=== PATIENT | female | born 1940 | race Caucasian/White ===

== ENCOUNTER 2017-01-25 14:08 | Emergency (ER) | payer MEDICARE, BC ==
[2017-01-25] MEDS ORDERED: Albuterol/Ipratropium 3.0-0.5 MG/3 ML Neb Soln NEB ONE (14:58)
--- NOTE | 2017-01-25 15:09 | EDM.PDOC ---
ED HPI GENERAL MEDICAL PROBLEM - General Chief Complaint: Upper Extremity Injury/Pain Stated Complaint: FELL AND HIT HEAD Time Seen by Provider: 01/25/17 14:32 Source of Information: Reports: Patient History Limitations: Reports: No Limitations - History of Present Illness INITIAL COMMENTS - FREE TEXT/NARRATIVE: 76 yo female presents to ER after fall. She was bending to sweep floor in bathroom and is unsure how but fell hitting head on floor, she recalls whole fall with no LOC. She has abrasion to left forehead bleeding currently controlled. denies headache or nausea. She states she felt great before the fall and does not believe she passed out. she injured left wrist and right 4th digit in the fall. no other injuries. She also c/o multiple weeks of intermittent wheezing. clear nasal drainage. she has became wheezy before and had relief with nebs. she is visiting from [place] and plans to return home in 2 days. Denies fever, chills, or general illness. - Related Data Allergies Allergy/AdvReac Type Severity Reaction Status Date / Time Penicillins Allergy Hives Verified 01/25/17 14:23 Home Meds: Home Meds Metoprolol Succinate [Toprol XL] 01/25/17 [History] PARoxetine HCl [Paxil] 01/25/17 [History] Rosuvastatin [Crestor] 01/25/17 [History] Past Medical History Musculoskeletal History: Reports: Back Pain, Chronic - Past Surgical History Female Surgical History: Reports: Section Musculoskeletal Surgical History: Reports: Carpal Tunnel Social & Family History - Tobacco Use Smoking Status *Q: Never Smoker Review of Systems - Review of Systems Review Of Systems: See Below Respiratory: Reports: Wheezing Cardiovascular: Denies: Chest Pain, Edema GI/Abdominal: Denies: Abdominal Pain Genitourinary: Denies: Dysuria Musculoskeletal: Reports: Arm Pain, Hand Pain ED EXAM, GENERAL - Physical Exam Exam: See Below Exam Limited By: No Limitations General Appearance: Alert, WD/WN, No Apparent Distress Head: Facial Swelling (mild edema to left forehead), Facial Tenderness (left facial abrasion) Neck: Normal Inspection, Supple, Non-Tender, Full Range of Motion. No: Lymphadenopathy (R), Lymphadenopathy (L) Respiratory/Chest: No Accessory Muscle Use, Chest Non-Tender, Wheezing ( throughout) Cardiovascular: Regular Rate, Rhythm, No JVD, No Murmur, No Rub GI/Abdominal: Soft, Non-Tender Back Exam: Normal Inspection, Full Range of Motion Extremities: Joint Swelling (left wrist point tenderness and moderate edema medial distal ulna, right 4th finger PIP ecchymosis with moderate edema) Neurological: Alert, Oriented, Normal Cognition, Normal Gait, Normal Reflexes, No Motor/Sensory Deficits Psychiatric: Normal Affect, Normal Mood Skin Exam: Warm, Dry, Intact Lymphatic: No Adenopathy Course - Vital Signs Last Recorded V/S: Last Vital Signs Temp 36 C 01/25/17 14:33 Pulse 76 01/25/17 14:33 Resp 14 01/25/17 14:33 BP 193/103 H 01/25/17 14:33 Pulse Ox 97 01/25/17 14:33 - Orders/Labs/Meds Orders: Active Orders 24 hr Category Date Time Status RT Aerosol Therapy [RC] ASDIRECTED Care 01/25/17 14:58 Active Chest 2V [CR] Stat Exams 01/25/17 14:58 Taken Fingers Fourth Digit Rt F8 [CR] Stat Exams 01/25/17 14:56 Taken Wrist Comp Min 3V Lt [CR] Stat Exams 01/25/17 14:57 Taken Meds: Medications Discontinued Medications Generic Name Dose Route Start Last Admin Trade Name Freq PRN Reason Stop Dose Admin Albuterol/Ipratropium 3 ml 01/25/17 14:58 01/25/17 15:33 Duoneb 3.0-0.5 Mg/3 Ml NEB 01/25/17 14:59 3 ml ONETIME ONE Administration Departure - Departure Time of Disposition: 15:42 Disposition: Home, Self-Care 01 Condition: Good Clinical Impression: Fracture of ulna Qualifiers: Encounter type: initial encounter Ulna location: distal Fracture type: closed Fracture morphology: unspecified fracture morphology Laterality: left Qualified Code(s): S52.602A - Unspecified fracture of lower end of left ulna, initial encounter for closed fracture Pneumonia Qualifiers: Pneumonia type: due to unspecified organism Laterality: right Lung location: lower lobe of lung Qualified Code(s): J18.1 - Lobar pneumonia, unspecified organism - Discharge Information Referrals: PCP,None [Primary Care Provider] - Forms: ED Department Discharge Additional Instructions: ice finger and wrist at least 3 times per day tylenol 1000 mg every 6 hours for pain leave splint in place until she is seen in follow-up either by primary care provider or orthopedics, X-ray are on CD pneumonia and wheezing - Azithromycin 500 mg daily for 5 days. continue use of albuterol MDI until you return home then use nebulizer in place of MDI - My Orders Last 24 Hours: My Active Orders 01/25/17 14:56 Fingers Fourth Digit Rt F8 [CR] Stat 01/25/17 14:57 Wrist Comp Min 3V Lt [CR] Stat 01/25/17 14:58 RT Aerosol Therapy [RC] ASDIRECTED Chest 2V [CR] Stat - Assessment/Plan Last 24 Hours: My Active Orders 01/25/17 14:56 Fingers Fourth Digit Rt F8 [CR] Stat 01/25/17 14:57 Wrist Comp Min 3V Lt [CR] Stat 01/25/17 14:58 RT Aerosol Therapy [RC] ASDIRECTED Chest 2V [CR] Stat
[2017-01-25 16:06] VITALS: BP 190/92
[2017-01-25] MEDS ORDERED: Bacitracin Oint 1 GM U/D Packet ONE (16:11)
--- NOTE | 2017-01-27 08:26 | CR ---
Chest 2V HISTORY: wheeze COMPARISON: None FINDINGS: Lungs appear clear and normally aerated. Cardiomediastinal silhouette is within normal limits. No va scular redistribution or pleural fluid can be seen. Anterior*are noted mid to lower thoracic spine. IMPRESSION: No acute cardiopulmonary disease is identified.
--- NOTE | 2017-01-27 08:27 | CR ---
Fingers Fourth Digit Rt F8 HISTORY: trauma FINDINGS: Bony structures are diffusely osteopenic. There is a mildly displaced small avulsion fract ure anteriorly at the base of the middle phalanx right fourth finger. Associated soft tissue swellin g is noted. Degenerative joint space narrowing is seen at the DIP and PIP joints. IMPRESSION: Mildly displaced volar plate avulsion fracture base of the middle fillings right fourth finger. Osteopenia and osteoarthritis are noted.
--- NOTE | 2017-01-27 08:29 | CR ---
Wrist Comp Min 3V Lt HISTORY: trauma FINDINGS: There appears to be a slightly displaced avulsion fracture tip of the styloid process left ulna. No other acute fracture or dislocation about the left wrist is identified. Mild degenerative changes are noted. There is soft tissue swelling. IMPRESSION: Probable mildly displaced avulsion fracture tip of the study process left ulna. Recommen d clinical correlation for point tenderness. Degenerative changes left wrist are noted.
== END 2017-01-25 16:38 | disposition home or self-care (01) ==
LOC: JP.ED 14:08
DX: S52.602A Unspecified fracture of lower end of left ulna, initial encounter for closed fracture (principal); J18.9 Pneumonia, unspecified organism; Z88.0 Allergy status to penicillin; W18.30XA Fall on same level, unspecified, initial encounter; Y93.89 Activity, other specified
CPT/HCPCS: 71020; 73110; 73140; 99284; J7620; 99283

== ENCOUNTER 2017-02-01 16:31 | Emergency (ER) | payer MEDICARE, BC ==
[2017-02-01 17:08] VITALS: BP 176/83
[2017-02-01] MEDS ORDERED: Albuterol/Ipratropium 3.0-0.5 MG/3 ML Neb Soln NEB ONE ×2 (17:49→19:03)
--- NOTE | 2017-02-01 17:55 | EDM.PDOC ---
ED HPI GENERAL MEDICAL PROBLEM - General Chief Complaint: Respiratory Problem Stated Complaint: PNEUMONIA Time Seen by Provider: 02/01/17 17:45 Source of Information: Reports: Patient History Limitations: Reports: No Limitations - History of Present Illness INITIAL COMMENTS - FREE TEXT/NARRATIVE: Beth is a 76 year old female who presents to the ED today with c/o increased wheezing and sob. Patient was seen in the ED on 01/25 after she fell and diagnosed with a distal ulnar fracture. Patient was reportedly wheezing at that time and a CXR was done. Patient was put on a Zpack for pneumonia and has been using albuterol inhalers and nebulizers at home. Patient denies worsening of symptoms but reports her symptoms really haven't improved. She denies any fever/chills. Patient denies any chest pain. Patient has been eating and drinking well. - Related Data Allergies Allergy/AdvReac Type Severity Reaction Status Date / Time Penicillins Allergy Hives Verified 01/25/17 14:23 Home Meds: Home Meds Metoprolol Succinate [Toprol XL] 100 mg PO DAILY 01/25/17 [History] PARoxetine HCl [Paxil] 10 mg PO DAILY 01/25/17 [History] Rosuvastatin [Crestor] 10 mg PO BEDTIME 01/25/17 [History] Albuterol [Proventil Neb Soln] 2.5 mg IH Q4HR 02/01/17 [History] Albuterol [Ventolin HFA] 2 puff IH Q4HR PRN 02/01/17 [History] Fluticasone/Vilanterol [Breo Ellipta 100-25 MCG Inhalation Kit] 1 each IH DAILY 02/01/17 [History] Latanoprost [Latanoprost] 1 drop TOP BEDTIME 02/01/17 [History] Losartan/Hydrochlorothiazide [Losartan-HCTZ 100-12.5 MG] 1 tab PO DAILY [History] Past Medical History HEENT History: Reports: Cataract, Glaucoma Cardiovascular History: Reports: High Cholesterol, Hypertension Genitourinary History: Reports: Urinary Incontinence [employer] History: Reports: Musculoskeletal History: Reports: Back Pain, Chronic Psychiatric History: Reports: Anxiety Hematologic History: Reports: Other (See Below) Other Hematologic History: Factor five - Past Surgical History HEENT Surgical History: Reports: Cataract Surgery Female Surgical History: Reports: Section Neurological Surgical History: Reports: Spinal Fusion Musculoskeletal Surgical History: Reports: Carpal Tunnel Social & Family History - Tobacco Use Smoking Status *Q: Former Smoker Used Tobacco, but Quit: Yes Month Tobacco Last Used: 43 years ago - Caffeine Use Caffeine Use: Reports: Coffee - Recreational Drug Use Recreational Drug Use: No ED ROS GENERAL - Review of Systems Review Of Systems: See Below Constitutional: Reports: No Symptoms HEENT: Reports: No Symptoms Respiratory: Reports: Shortness of Breath, Wheezing Cardiovascular: Reports: No Symptoms Endocrine: Reports: No Symptoms GI/Abdominal: Reports: No Symptoms : Reports: No Symptoms Musculoskeletal: Reports: No Symptoms Skin: Reports: No Symptoms Neurological: Reports: No Symptoms Psychiatric: Reports: No Symptoms Hematologic/Lymphatic: Reports: No Symptoms Immunologic: Reports: No Symptoms ED EXAM, GENERAL - Physical Exam Exam: See Below Exam Limited By: No Limitations General Appearance: Alert, WD/WN, Mild Distress (Respiratory, wheezing) Respiratory/Chest: No Respiratory Distress, No Accessory Muscle Use, Chest Non- Tender, Wheezing Cardiovascular: Regular Rate, Rhythm, No Murmur GI/Abdominal: Normal Bowel Sounds, Soft, Non-Tender Back Exam: Normal Inspection Neurological: Alert, Oriented, CN II-XII Intact Skin Exam: Warm, Dry, Intact, Other (small mole to right upper back, irregular borders and flaky) Lymphatic: No Adenopathy Course - Vital Signs Text/Narrative:: Beth is a 76 year old female with a hx of HTN and depression who presents to the ED today with c/o of wheezing and sob. Please refer to HPI and focused exam. Patient was seen on 01/25 here in the ED and diagnosed with lobar pneumonia and started on Zithromax. Patient reports her symptoms have not really improved. Patient is audibly wheezing on exam. She is mildly tachypneic , she is not hypoxic and exhibits no accessory muscle use. It is likely given smoking hx she may have some undiagnosed COPD. Patient was given 2 DuoNebs here with improvement in her wheezing, CXR obtained, no focal lobar pneumonia identified. CBC is unremarkable with a normal white count. CMP returns with mildly low sodium of 131, BUN mildly elevated, remaining CMP within normal limits. Patient was given a dose of oral prednisone here in the ED. I feel she is stable to be discharged home with PCP follow up next week. I am going to send her home with an Rx for Dounebs which she can use in place of the albuterol as needed. I am also going to start patient on a tapering dose of prednisone. Patient may benefit from daily controller inhaler which I will let her PCP determine. Patient may need another pulmonary consult if her symptoms do not improve over the next few days. Reasons to return to the ED were discussed. Patient and her daughter are agreeable to plan of care and questions were answered prior to discharge. Patient discharged with her daughter from the ED in stable condition. Last Recorded V/S: Last Vital Signs Temp 36.8 C 02/01/17 16:57 Pulse 66 02/01/17 16:57 Resp 22 H 02/01/17 16:57 BP 176/83 H 02/01/17 16:57 Pulse Ox 96 02/01/17 16:57 - Orders/Labs/Meds Orders: Active Orders 24 hr Category Date Time Status RT Aerosol Therapy [RC] ASDIRECTED Care 02/01/17 17:49 Active RT Aerosol Therapy [RC] ASDIRECTED Care 02/01/17 19:03 Active Chest 2V [CR] Stat Exams 02/01/17 17:48 Taken Labs: Laboratory Tests 02/01/17 02/01/17 Range/Units 17:59 17:59 WBC 9.2 (4.5-11.0) K/uL RBC 4.50 (3.30-5.50) M/uL Hgb 13.6 (12.0-15.0) g/dL Hct 39.3 (36.0-48.0) % MCV 87 (80-98) fL MCH 30 (27-31) pg MCHC 35 (32-36) % Plt Count 323 (150-400) K/uL Neut % (Auto) 53 (36-66) % Lymph % (Auto) 22 L (24-44) % [place] % (Auto) 13 H (2-6) % Eos % (Auto) 10 H (2-4) % Baso % (Auto) 1 (0-1) % Sodium 131 L (140-148) mmol/L Potassium 4.0 (3.6-5.2) mmol/L Chloride 94 L (100-108) mmol/L Carbon Dioxide 30 (21-32) mmol/L Anion Gap 11.0 (5.0-14.0) mmol/L BUN 19 H (7-18) mg/dL Creatinine 0.7 (0.6-1.0) mg/dL Est Cr Clr Drug Dosing 57.20 mL/min Estimated GFR (MDRD) > 60 (>60) Glucose 99 (74-106) mg/dL Calcium 8.9 (8.5-10.1) mg/dL Total Bilirubin 0.4 (0.2-1.0) mg/dL AST 20 (15-37) U/L ALT 23 (12-78) U/L Alkaline Phosphatase 73 (46-116) U/L Total Protein 7.4 (6.4-8.2) g/dL Albumin 3.3 L (3.4-5.0) g/dL Globulin 4.1 H (2.3-3.5) g/dL Albumin/Globulin Ratio 0.8 L (1.2-2.2) Meds: Medications Discontinued Medications Generic Name Dose Route Start Last Admin Trade Name Freq PRN Reason Stop Dose Admin Albuterol/Ipratropium 3 ml 02/01/17 17:49 02/01/17 18:21 Duoneb 3.0-0.5 Mg/3 Ml NEB 02/01/17 17:50 3 ml ONETIME ONE Administration Albuterol/Ipratropium 3 ml 02/01/17 19:03 02/01/17 19:08 Duoneb 3.0-0.5 Mg/3 Ml NEB 02/01/17 19:04 3 ml ONETIME ONE Administration Prednisone 40 mg 02/01/17 19:03 02/01/17 19:07 Prednisone PO 02/01/17 19:04 40 mg ONETIME ONE Administration Departure - Departure Time of Disposition: 20:00 Disposition: Home, Self-Care 01 Condition: Good Clinical Impression: Wheezing - Discharge Information Instructions: Shortness of Breath, [id number], Acute Bronchitis, [id number] Referrals: PCP,None [Primary Care Provider] - Forms: ED Department Discharge Additional Instructions: Please use Duo Nebs as needed. Take Prednisone as prescribed. Follow up with primary care in one week. It may be some undiagnosed emphysema/ COPD may be playing a role in your symptoms. Make sure you are drinking plenty of fluids. Return to the ED with any worsening shortness of breath. - My Orders Last 24 Hours: My Active Orders 02/01/17 17:48 Chest 2V [CR] Stat 02/01/17 17:49 RT Aerosol Therapy [RC] ASDIRECTED 02/01/17 19:03 RT Aerosol Therapy [RC] ASDIRECTED - Assessment/Plan Last 24 Hours: My Active Orders 02/01/17 17:48 Chest 2V [CR] Stat 02/01/17 17:49 RT Aerosol Therapy [RC] ASDIRECTED 02/01/17 19:03 RT Aerosol Therapy [RC] ASDIRECTED
[2017-02-01] MEDS ORDERED: predniSONE 20 MG Tab PO ONE (19:03)
--- NOTE | 2017-02-03 10:05 | CR ---
Chest 2V HISTORY: Cough, wheezing. COMPARISON: 01/25/2017. FINDINGS: Cardiac size is borderline enlarged. Pulmonary vessels normal. No focal infiltrates or eff usions seen.
== END 2017-02-01 19:30 | disposition home or self-care (01) ==
LOC: JP.ED 16:31
DX: R06.2 Wheezing (principal); H40.9 Unspecified glaucoma; E78.00 Pure hypercholesterolemia, unspecified; I10 Essential (primary) hypertension; D68.2 Hereditary deficiency of other clotting factors; Z87.891 Personal history of nicotine dependence; Z88.0 Allergy status to penicillin; Z79.899 Other long term (current) drug therapy; Z98.49 Cataract extraction status, unspecified eye; Z98.890 Other specified postprocedural states
CPT/HCPCS: 36415; 71020; 80053; 85025; 94640; 99285; A9270; J7620; 99283